=== PATIENT | male | born 1950 | race Caucasian/White ===

== ENCOUNTER 2024-10-14 13:14 | Outpatient (AMB) | payer MEDICARE, MEDICAID, SELFPAY ==
[2024-10-14 13:33] VITALS: BP 142/72; PULSE 70; RESP 18; TEMP 36.3; O2SAT 90; BMI 34.7
--- NOTE | 2024-10-14 13:33 | ORTHONT_ITS ---
Vital signs 10/14/24 13:33 Height 1.63 m Height Method Stated Weight 92.278 kg Weight Measurement Method Standing Scale BMI 34.7 BP 142/72 H Blood Pressure Source Automatic Cuff Blood Pressure Location Left Upper Arm Position Sitting Respiration 18 Pulse 70 Pulse Source Monitor Temp 97.4 F Temp Source Temporal Artery Scan Pulse Oximetry (%) 90 L Oxygen Delivery Method Room Air Med/Allergies Allergies & Medications Allergies No Known Allergies Allergy (Verified 10/14/24 13:34) Medication Reconciliation benzonatate 100 mg capsule (Tessalon Perles) 200 mg (2 x 100 mg) PO TID PRN coug h #30 caps 08/22/18 [Rx Confirmed 10/14/24] insulin human U-100 NPH-regulr 70-30 mix 100 unit/mL subcutaneous susp (Novolin 70/30 U-100 Insulin) 25 unit subcut ACHS Diabetes 08/22/18 [History Confirmed 10/14/24] levetiracetam 500 mg tablet (Keppra) 1,000 mg PO BID 08/22/18 [History Confirmed 10/14/24] losartan 50 mg tablet (Cozaar) 1 tab PO QDAY 08/22/18 [History Confirmed 10/14/24] vcdzceteiern-oohzkumavefqe-dlhekfg 6.25 mg-5 mg-10 mg/5 mL oral syrup (Promethazine VC-Codeine) 5 ml PO Q6H PRN cough #118 mL 08/22/18 [Rx Confirmed 10/14/24] ramipril 5 mg capsule 5 mg PO QDAY 08/22/18 [History Confirmed 10/14/24] albuterol sulfate 90 mcg/actuation aerosol inhaler 1 puff inhalation QID PRN shortness of breath or wheezing #8.5 grams 09/04/22 [Rx Confirmed 10/14/24] nirmatrelvir 300 mg (150 mg x2)-ritonavir 100 mg tablet,dose pack (Paxlovid) See Rx Instructions PO .COMPLEX #30 tabs 09/04/22 [Rx Confirmed 10/14/24] acetaminophen 500 mg capsule 1,000 mg (2 x 500 mg) PO TID #30 caps 09/11/22 [Rx Confirmed 10/14/24] dextromethorphan-guaifenesin 10 mg-100 mg/5 mL oral liquid 10 ml PO Q8H PRN cough #500 mL 09/11/22 [Rx Confirmed 10/14/24] hydrocodone 5 mg-acetaminophen 325 mg tablet 1 tab PO BID PRN pain #10 tabs 10/01/22 [Rx Confirmed 10/14/24] ibuprofen 600 mg tablet 600 mg PO Q6H #30 tabs 10/01/22 [Rx Confirmed 10/14/24] Exam Exam Breathing is nonlabored. Patient has a normal mood and affect. Bilateral extremities were evaluated and demonstrates sensation intact to light touch. Palpable pedal pulses are present. No significant edema is present. Bilateral hips were examined. The patient has no pain with log roll of the hips. Internal rotation to 30 degrees and external rotation to 30 degrees is painless. Negative FADIR. Left knee was examined today. The left knee is in reasonable alignment. Range of motion from 0-120 degrees. Knee is stable to varus and valgus as well as AP translation with <5mm. Patient has a negative McMurrays. There is no pain with patellofemoral compression and no crepitus noted. The knee is nontender to palpation. The right knee was also examined. The right knee is in varus alignment. Range of motion from 0-115 degrees. Knee is stable to varus and valgus as well as AP translation with <5mm. Patient has a negative McMurrays. There is no pain with patellofemoral compression and no crepitus noted. The knee is tender to palpation medially. Right knee MRI demonstrates medial cartilage loss as well as lateral medial meniscus tears Assessment and Plan Problem List (1) Arthritis of right knee: Status: Acute Plan: Patient is a pleasant 74-year-old male with right knee pain and right knee arthritis. We discussed nonoperative and operative options. He would like a cortisone injection today which is reasonable. Recommend knee cortisone injection as patient would like to proceed with conservative treatment at this time. The risks and benefits of the procedure were reviewed with the patient and patient gave verbal consent to continue with the procedure. Procedure: performed by Dr. Canas Using sterile technique the Right knee was thoroughly prepped with alcohol, and approximately 1 cc of Kenalog 40 mg/mL and 4 cc of 1% lidocaine was injected without resistance into the medial tibial femoral joint space. The patient tolerated the procedure. 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 3 (2106-6174) Surgical Proc/IM SQ injection Major Surgical Procedure: Yes (RIGHT KNEE INJECTION) Medication Given Medication Given Medication Given: Yes Documented Dose Given: 4 Route: Infiitration Medication Given Medication Given Medication Given: Yes Documented Dose Given: 1 Route: Infiitration Office Meds Xylocaine 10 mg/mL (1 %) injection solution Performing Provider: Tavares Canas MD Performing Location: [facility] Administered by: Tavares Canas MD on 10/14/24 14:15 Dose Route Admin Location Dispensed Lot Number Expiration Date [facility] Accounts Receivable Administrator 20 mL Infiltration 20 mL [id number] 01/19/28 63367-081-[address] [facility] triamcinolone acetonide 40 mg/mL suspension for injection Performing Provider: Tavares Canas MD Performing Location: [facility] Administered by: Jessica Du on 10/14/24 14:15 Dose Route Admin Location Dispensed Lot Number Expiration Date [facility] Accounts Receivable Administrator 40 mg intra-articular KNEE 1 mL [id number] 02/17/26 0800-0763-0 1 TEVA PARENTERAL [place] Intake Visit Data Collection New Patient or Established: New Patient (never been to [facility]) Reason for Visit:: RIGHT KNEE PAIN Seen by Clinical Staff ONLY (RN/MA): No Custom Applicator Required: Yes PCP or OBGYN visit in last 3 months: Yes Hx Now: No Do You Feel Safe at Home: Yes Authorities Contacted: N/A Questionairres Past Medical History Past Medical History Have you ever been diagnosed with any of the following: Neurological Problems Traumatic Brain Injury: Yes Cardiology Problems Hypercholesterolemia: Yes Congestive Heart Failure: No Hypertension: Yes Respiratory Problems Chronic Obstructive Pulmonary Disease (COPD): No Genital/Urinary Problems Renal Disease: No Endocrine Problems Diabetes Mellitus Type 1: No Diabetes Mellitus Type 2: Yes Subjective Visit Visit for: new patient and knee (RIGHT) Immunization / Flu Flu Vaccine in the Last 12 Months: Yes Flu Vaccine Exclusion Criteria: Already Received History of Present Illness Chief complaint: right knee pain Date of injury / onset of symptoms: 05/2024 Yoana is a pleasant 74-year-old male with right knee pain and right knee arthritis. He has an MRI which shows lateral medial meniscus tear as well as arthritis. He reports that he had 1 injection previously and it helped for quite a while. He would like another 1 today. He is unsure of how well his sugars are controlled. We discussed in detail that this could raise his sugars. He would still want one today. Personal History Occupation: UNEMPLOYED Hobbies: NONE Pain Pain level (0-10): 5 Pain duration: COMES AND GOES Pain location: inside (medial) and anterior Pain quality: dull and aching Pain timing: night, increases with activity and stairs Associated signs & symptoms: none Ambulatory data Ambulatory device: none Treatments Number of previous injections: 3 Improvement with previous injections: Yes Improvement with PT: No Improvement with NSAIDS: no Review of Systems Review of Systems: All systems negative unless otherwise noted in HPI.
== END 2024-10-14 14:25 | disposition home or self-care (01) ==
LOC: HODSRG 13:14
PROVIDERS: PCP Internal Medicine; Referring Provider Internal Medicine; Supervising Provider Orthopaedic Surgery Adult Reconstructive Orthopaedic Surgery; Visit Provider Orthopaedic Surgery Adult Reconstructive Orthopaedic Surgery
DX: M17.11 Unilateral primary osteoarthritis, right knee (principal); M25.561 Pain in right knee; I10 Essential (primary) hypertension; E78.00 Pure hypercholesterolemia, unspecified; E11.9 Type 2 diabetes mellitus without complications
CPT/HCPCS: 20610; 99203; J3301; J3490; G0463

== ENCOUNTER → 2024-10-14 | Outpatient (CLI) | payer MEDICARE, MEDICAID, SELFPAY ==
--- NOTE | 2024-10-14 14:59 | XR_ITS ---
Examination: Right knee 4 views TECHNIQUE: AP oblique lateral axial right knee 4 views Exam date and time: October 14, 2024 1531 hours INDICATIONS: Right knee pain beginning 3 months ago. FINDINGS: Significant osteopenia Moderate knee effusion Advanced tricompartment osteoarthritis No fracture No patellar dislocation IMPRESSION: Advanced tricompartment osteoarthritis
== END | disposition home or self-care (01) ==
PROVIDERS: PCP Nurse Practitioner Primary Care; Referring Provider Orthopaedic Surgery Adult Reconstructive Orthopaedic Surgery; Visit Provider Orthopaedic Surgery Adult Reconstructive Orthopaedic Surgery
DX: M17.11 Unilateral primary osteoarthritis, right knee (principal)
CPT/HCPCS: 73564

== ENCOUNTER 2024-11-22 13:02 | Outpatient (AMB) | payer OTHER, SELFPAY ==
--- NOTE | 2024-11-22 13:32 | ORTHONT_ITS ---
Vital signs 11/22/24 13:33 Height 1.63 m Height Method Stated Weight 93.553 kg Weight Measurement Method Standing Scale BMI 35.2 BP 144/70 H Blood Pressure Source Automatic Cuff Blood Pressure Location Left Upper Arm Position Sitting Respiration 18 Pulse 77 Pulse Source Monitor Temp 97.8 F Temp Source Temporal Artery Scan Pulse Oximetry (%) 90 L Oxygen Delivery Method Room Air Med/Allergies Allergies & Medications Allergies No Known Allergies Allergy (Verified 11/22/24 13:34) Medication Reconciliation benzonatate 100 mg capsule (Tessalon Perles) 200 mg (2 x 100 mg) PO TID PRN coug h #30 caps 08/22/18 [Rx Confirmed 11/22/24] insulin human U-100 NPH-regulr 70-30 mix 100 unit/mL subcutaneous susp (Novolin 70/30 U-100 Insulin) 25 unit subcut ACHS Diabetes 08/22/18 [History Confirmed 11/22/24] levetiracetam 500 mg tablet (Keppra) 1,000 mg PO BID 08/22/18 [History Confirmed 11/22/24] losartan 50 mg tablet (Cozaar) 1 tab PO QDAY 08/22/18 [History Confirmed 11/22/24] fpvtpafiisac-jwjkixsswwqtn-brxzsha 6.25 mg-5 mg-10 mg/5 mL oral syrup (Promethazine VC-Codeine) 5 ml PO Q6H PRN cough #118 mL 08/22/18 [Rx Confirmed 11/22/24] ramipril 5 mg capsule 5 mg PO QDAY 08/22/18 [History Confirmed 11/22/24] albuterol sulfate 90 mcg/actuation aerosol inhaler 1 puff inhalation QID PRN shortness of breath or wheezing #8.5 grams 09/04/22 [Rx Confirmed 11/22/24] nirmatrelvir 300 mg (150 mg x2)-ritonavir 100 mg tablet,dose pack (Paxlovid) See Rx Instructions PO .COMPLEX #30 tabs 09/04/22 [Rx Confirmed 11/22/24] acetaminophen 500 mg capsule 1,000 mg (2 x 500 mg) PO TID #30 caps 09/11/22 [Rx Confirmed 11/22/24] dextromethorphan-guaifenesin 10 mg-100 mg/5 mL oral liquid 10 ml PO Q8H PRN cough #500 mL 09/11/22 [Rx Confirmed 11/22/24] hydrocodone 5 mg-acetaminophen 325 mg tablet 1 tab PO BID PRN pain #10 tabs 10/01/22 [Rx Confirmed 11/22/24] ibuprofen 600 mg tablet 600 mg PO Q6H #30 tabs 10/01/22 [Rx Confirmed 11/22/24] Exam Exam Breathing is nonlabored. Patient has a normal mood and affect. Bilateral extremities were evaluated and demonstrates sensation intact to light touch. Palpable pedal pulses are present. No significant edema is present. Bilateral hips were examined. The patient has no pain with log roll of the hips. Internal rotation to 30 degrees and external rotation to 30 degrees is painless. Negative FADIR. Left knee was examined today. The left knee is in reasonable alignment. Range of motion from 0-120 degrees. Knee is stable to varus and valgus as well as AP translation with <5mm. Patient has a negative McMurrays. There is no pain with patellofemoral compression and no crepitus noted. The knee is nontender to palpation. The right knee was also examined. The right knee is in varus alignment. Range of motion from 0-115 degrees. Knee is stable to varus and valgus as well as AP translation with <5mm. Patient has a negative McMurrays. There is no pain with patellofemoral compression and no crepitus noted. The knee is tender to palpation medially. Right knee MRI demonstrates medial cartilage loss as well as lateral medial meniscus tears X-rays demonstrate significant arthritis of the medial compartment with complete joint space narrowing. Assessment and Plan Problem List (1) Arthritis of right knee: Status: Acute Plan: Patient is a pleasant 74-year-old male with right knee pain and right knee arthritis. We discussed nonoperative and operative options. He is doing well with the last cortisone injection. Will continue with nonoperative treatment. We will see him in approximately 3 months for repeat injections versus operative.treatment. Advanced Care Planning Discussion Advance care planning discussed with:: patient Office Procedures GNS Level of Care Nursing/Assessment Patient Status: Established Patient Nursing Assessment/Reassesment: Medication Reconciliation, Update PMH in EMR and Vital Signs Coordination of Care: Complex Care and Chronic Disease 1-5, Education Complex Pt/Fam, Consent,records obtained, informed consent, Results/Orders obtained and Staff clarify orders Special Needs: Language special needs Established Patient Charge Established Patient Point Assignment: 95 Established Patient Point Charge: EP Level 3 (80-115) MA Intake Visit Data Collection New Patient or Established: Established Patient (seen at [facility] within 3 years) Reason for Visit:: XRAY F/U Seen by Clinical Staff ONLY (RN/MA): No Automotive Parts Coordinator Required: Yes PCP or OBGYN visit in last 3 months: Yes Hx Now: No Do You Feel Safe at Home: Yes Authorities Contacted: N/A Questionairres Past Medical History Past Medical History Have you ever been diagnosed with any of the following: Neurological Problems Traumatic Brain Injury: Yes Cardiology Problems Hypercholesterolemia: Yes Congestive Heart Failure: No Hypertension: Yes Respiratory Problems Chronic Obstructive Pulmonary Disease (COPD): No Smoking: No Smoking Cessation Counseling: No Smoking Exposure: No Genital/Urinary Problems Renal Disease: No Endocrine Problems Diabetes Mellitus Type 1: No Diabetes Mellitus Type 2: Yes Subjective Visit Visit for: follow up visit and x-rays Immunization / Flu Flu Vaccine in the Last 12 Months: No Flu Vaccine Exclusion Criteria: No Exclusion Criteria History of Present Illness Chief complaint: right knee pain Date of injury / onset of symptoms: 05/2024 Yoana is a pleasant 74-year-old male with right knee pain and right knee arthritis. He has an MRI which shows lateral medial meniscus tear as well as arthritis. He reports that he had 1 injection previously and it helped for quite a while. His last injections have worked tremendously and he is here for his xray results. Personal History Occupation: UNEMPLOYED Hobbies: NONE Pain Pain level (0-10): 0 Pain duration: COMES AND GOES Pain location: inside (medial) and anterior Pain quality: dull and aching Pain timing: night, increases with activity and stairs Associated signs & symptoms: none Ambulatory data Ambulatory device: walker Treatments Number of previous injections: 3 Improvement with previous injections: No Improvement with PT: No Improvement with NSAIDS: no Review of Systems Review of Systems: All systems negative unless otherwise noted in HPI.
[2024-11-22 13:33] VITALS: BP 144/70; PULSE 77; RESP 18; TEMP 36.6; O2SAT 90; BMI 35.2
== END 2024-11-22 13:55 | disposition home or self-care (01) ==
PROVIDERS: PCP Internal Medicine; Referring Provider Internal Medicine; Supervising Provider Orthopaedic Surgery Adult Reconstructive Orthopaedic Surgery; Visit Provider Orthopaedic Surgery Adult Reconstructive Orthopaedic Surgery
DX: M17.11 Unilateral primary osteoarthritis, right knee (principal)
CPT/HCPCS: 99213; G0463

== ENCOUNTER 2025-03-01 07:19 | Emergency (ER) | payer OTHER, SELFPAY ==
[2025-03-01 07:32] VITALS: BP 140/68; PULSE 72; RESP 18; TEMP 37.4; O2SAT 95; BMI 32.3
--- NOTE | 2025-03-01 07:39 | XR_ITS ---
Examination: PA lateral chest 2 views Technique PA lateral chest 2 views Indications: Coughing beginning 3 days ago. Findings: Heart size normal No lobar pneumonia. The osseous structures are intact Impression: No pneumonia or pulmonary edema
--- NOTE | 2025-03-01 07:40 | EDNOTE_ITS ---
Upper Respiratory Inf. RME/HPI General Chief Complaint: Headache Stated Complaint: SEVERE HEADACHE THIS AM, COUGH X 3 DAYS Time Seen by Provider: 03/01/25 07:32 Source: patient Arrival date/time: 03/01/25 07:19 75-year-old male with a history of type 2 diabetes, hypertension, hyperlipidemia presents to the emergency room with a chief complaint of a 10 out of 10 headache and cough x 3 days Mode of arrival: ambulatory Limitations: no limitations Related Data Home Medications ?Medication ?Instructions ?Recorded ?Confirmed insulin human U-100 NPH-regulr 25 unit subcut ACHS Haley betes 08/22/18 11/22/24 70-30 mix 100 unit/mL subcutaneous susp (Novolin 70/30 U-100 Insulin) levetiracetam 500 mg tablet 1,000 mg PO BID 08/22/18 0 11/22/24 (Keppra) losartan 50 mg tablet (Cozaar) 1 tab PO QDAY 08/22/18 11/22/24 ramipril 5 mg capsule 5 mg PO QDAY 08/22/18 Previous Rx's ?Medication ?Instructions ?Recorded benzonatate 100 mg capsule 200 mg (2 x 100 mg) PO TID PRN 08/22/18 (Hansa Allen) cough #30 caps rxjzkkjbeest-jjotytcmiqpgi-fzjqgch 5 ml PO Q6H PRN cou gh #118 mL 08/22/18 6.25 mg-5 mg-10 mg/5 mL oral syrup (Promethazine VC-Codeine) albuterol sulfate 90 mcg/actuation 1 puff inhalation Q ID PRN 09/04/22 aerosol inhaler shortness of breath or wheez ing #8.5 grams nirmatrelvir 300 mg (150 mg See Rx Instructions PO .CO MPLEX 09/04/22 x2)-ritonavir 100 mg tablet,dose #30 tabs pack (Paxlovid) acetaminophen 500 mg capsule 1,000 mg (2 x 500 mg) PO TID #30 09/11/22 caps dextromethorphan-guaifenesin 10 10 ml PO Q8H PRN cough #500 mL 09/11/22 mg-100 mg/5 mL oral liquid hydrocodone 5 mg-acetaminophen 325 1 tab PO BID PRN pa in #10 tabs 10/01/22 mg tablet ibuprofen 600 mg tablet 600 mg PO Q6H #30 tabs 10/01 acetaminophen-caffeine 500 mg-65 1 tab PO Q8H PRN pain #30 tabs 03/01/25 mg tablet (Excedrin Tension Headache) Allergies Allergy/AdvReac Type Severity Reaction Status Date / Time No Known Allergies Allergy Verified 03/01/25 07:26 Review of Systems Review of Systems Systems Reviewed: All systems reviewed, normal except as documented Constitutional Constitutional: Reports system reviewed and no additional complaints, except as documented, Denies fatigue, Denies fever(s), Reports headache(s) and Reports weakness Eyes Eyes: Reports system reviewed and no additional complaints, except as documented, Denies blurry vision and Denies change in vision ENT Ears, Nose, Mouth, and Throat: Reports system reviewed and no additional complaints, except as documented, Denies otalgia, Reports headache(s), Denies nasal congestion, Denies throat swelling and Denies vertigo Cardiovascular Cardiovascular: Reports system reviewed and no additional complaints, except as documented, Denies chest pain, Denies dyspnea and Denies dyspnea on exertion Respiratory Respiratory: Reports system reviewed and no additional complaints, except as documented, Denies chest congestion, Reports cough, Denies dyspnea, Denies dyspnea on exertion and Denies wheezing Gastrointestinal Gastrointestinal: Reports system reviewed and no additional complaints, except as documented, Denies abdominal pain, Denies cramping, Denies nausea and Denies vomiting Genitourinary Genitourinary: Reports system reviewed and no additional complaints, except as documented, Denies dysuria and Denies hematuria Musculoskeletal Musculoskeletal: Reports system reviewed and no additional complaints, except as documented and Denies back pain Integumentary/Breasts Skin/Breast: Reports system reviewed and no additional complaints, except as documented and Denies wounds Neurologic Neurologic: Reports system reviewed and no additional complaints, except as documented, Denies confusion, Reports headache(s), Denies lack of coordination, Denies vertigo and Reports weakness Psychiatric Psychiatric: Reports system reviewed and no additional complaints, except as documented, Denies anxiety, Denies confusion, Denies depression, Denies paranoia, Denies suicidal ideation and Denies tactile hallucinations Endocrine Endocrine: Reports system reviewed and no additional complaints, except as documented and Denies fatigue Hematologic/Lymphatic Hematologic/Lymphatic: Reports system reviewed and no additional complaints, except as documented and Denies lymphadenopathy Allergic/Immunologic Allergic/Immunologic: Reports system reviewed and no additional complaints, except as documented, Denies throat swelling, Denies urticaria and Denies wheezing Past Medical History Past Medical History NEUROLOGIC: Positive Traumatic Brain Injury CARDIAC: Positive Cardiac Disorders, Hypercholesterolemia and Hypertension; Negative Congestive Heart Failure RESPIRATORY: Negative Chronic Obstructive Pulmonary Disease (COPD), Smoking, Smoking Cessation Counseling or Smoking Exposure GENITOURINARY: Negative Renal Disease ENDOCRINE: Positive Endocrine Disorders and Diabetes Mellitus Type 2; Negative Diabetes Mellitus Type 1 Social History SMOKING STATUS: Never smoker ED Exam General Limitations: Present no limitations General appearance: Present alert and in no apparent distress Head Head exam: Present atraumatic, normocephalic and normal inspection Eye Eye exam: Present normal appearance, PERRL and EOMI ENT ENT exam: Present normal exam, normal oropharynx and mucous membranes moist Neck Neck exam: Present normal inspection, full ROM and trachea midline Chest Chest inspection: Present normal inspection and symmetric chest wall rise Respiratory Respiratory exam: Present normal lung sounds bilaterally; Absent respiratory distress, wheezes, stridor, accessory muscle use or prolonged expiratory phase Cardiovascular Cardiovascular exam: Present regular rate, normal rhythm and normal heart sounds Abdominal Exam Abdominal exam: Present soft and normal bowel sounds Extremities Exam Extremities exam: Present normal inspection and full ROM Back Exam Back exam: Present normal inspection and full ROM Neurological Exam Neurological exam: Present alert, oriented X3 and CN II-XII intact Expanded Neurological Exam Patient oriented to: Present person, place and time Speech: Present fluid speech Cranial nerves: Normal: EOM function (II, III, IV, ) Motor strength - LUE: 5/5 Motor strength - RUE: 5/5 Motor strength - LLE: 5/5 Motor strength - RLE: 5/5 Coma scale eye opening: spontaneous Coma scale motor response: obeys commands Coma scale verbal response: oriented Coma scale total: 15 Psychiatric Psychiatric exam: Present normal affect and normal mood Skin Skin exam: Present warm, dry, intact and normal color Course Quality Measures none Orders Category Date Time Status Bedside Influenza A&B Antigen Test NOW Care 03/01/25 07:[address] head/brain wo con Stat Exams 03/01/25 07:40 Completed XR chest 2V Stat Exams 03/01/25 07:39 Completed COVID-19 Antigen (In-House) Stat Lab 03/01/25 08:10 Ordered Acetaminophen Tab [Tylenol ES Tab] Med 03/01/25 07:40 Discontinued 1,000 mg PO X1 ONE Vital Signs Vital signs: Vital Signs Temperature 99.4 F 03/01/25 07:32 Pulse Rate 72 03/01/25 07:32 Respiratory Rate 18 03/01/25 07:32 Blood Pressure 140/68 H 03/01/25 07:32 Pulse Oximetry (%) 95 03/01/25 07:32 Oxygen Delivery Method Room Air 03/01/25 07:32 Upper Respiratory Infection MDM Narrative MDM Narrative:: 75-year-old male with a history of type 2 diabetes, hypertension, hyperlipidemia presents to the emergency room with a chief complaint of a 10 out of 10 headache and cough x 3 days Patient is hemodynamically stable and in no apparent distress Physical examination shows a normal neurological exam. There are no focal deficits. The patient is a GCS of 15 he is alert and oriented x 3 pupils are PERRLA EOMs are intact the patient is able to tell me that this is a really bad headache that began 3 days ago and has progressively gotten worse The patient also has a cough lung sounds are clear bilaterally there is no wheezing stridor or any respiratory distress CT of the head and brain was negative for any acute findings. Chest x-ray was negative for any acute pneumonia Patient was discharged and educated to follow-up with primary care provider in the next 24 to 48 hours and return to the emergency room for any evidence of worsening signs or symptoms Patient data External records reviewed:: [facility] previous records Clinical information provided by:: patient Social determinants that could affect healthcare access:: none Patient has the following chronic illnesses:: Hypertension, hyperlipidemia, type 2 diabetes How is presenting disease/condition affected by chronic disease/condition?: uneffected by Evaluation data The following diagnostics were reviewed and interpreted by me:: lab results and radiology exam(s) Lab and/or radiology exams considered but not ordered:: Labs and radiology exams considered and ordered Interpretation Summary: Chest x-ray-no pneumonia Head CT-Findings: No significant ventricular enlargement. 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 No mass effect or midline shift Basal cisterns are not remarkable. Fourth ventricle is midline. Right craniotomy defect Impression: Negative for acute hemorrhage, mass effect or midline shift Medications / Prescriptions Medications or Prescriptions considered but not ordered:: Medication given Medication administrations:: Medication Administration History Discontinued Medications Acetaminophen (Acetaminophen 500 Mg Tablet) 1,000 mg PO X1 ONE Stop: 03/01/25 07:41 Last Admin: 03/01/25 08:48 Dose: 1,000 mg Documented By: LF Medication given Consultations Consultation(s) initiated? (list below): No Diagnosis Upper Respiratory Differential Diagnosis: upper respiratory infection, sinusitis, viral infection, bronchitis, influenza, pharyngitis and other (Community-acquired pneumonia) Most likely diagnosis given after review of the tests above:: Headache Admission Indicated Admission indicated?: not indicated Admission Request Was there a request for admission?: No Disposition Plan Disposition Plan: Discharge Discharge Attestation Discharge Attestation: The patient and all family members were given an opportunity to ask questions and understood the discharge instructions. Discharge instructions specifically effects, indications for sooner follow up or return to the emergency department, and the expected course of current diagnosis. Patient condition: Stable Discharge Plan Plan Patient Disposition: HOME (Self Care) Discharge Disposition comment: Stable Prescriptions/Referrals Prescriptions/Med Rec: New Excedrin Tension Headache 500-65 mg tablet 1 tab PO Q8H PRN (Reason: pain) Qty: 30 0RF No Action losartan [Cozaar] 50 mg Tablet 1 tab PO QDAY levetiracetam [Keppra] 500 mg Tablet 1,000 mg PO BID ramipril 5 mg Capsule 5 mg PO QDAY insulin NPH and regular human [Novolin 70/30 U-100 Insulin] 100 unit/mL (70- 30) Suspension 25 unit subcut ACHS benzonatate [Tessalon Perles] 100 mg capsule 200 mg PO TID PRN (Reason: cough) Qty: 30 0RF jdyzywtuloxa-tahifbckl-sjokanz [Promethazine VC-Codeine] 6.25-5-10 mg/5 mL syrup 5 ml PO Q6H PRN (Reason: cough) Qty: 118 0RF Paxlovid 300 mg (150 mg x 2)-100 mg tablets,dose pack See Rx Instructions .ROUTE .COMPLEX Qty: 30 0RF Rx Instructions: take TWO 150 mg tablets of nirmatrelvir with ONE 100 mg tablet of ritonavir twice daily for 5 days albuterol sulfate 90 mcg/actuation HFA aerosol inhaler 1 puff inhalation QID PRN (Reason: shortness of breath or wheezing) Qty: 8.5 0RF hydrocodone-acetaminophen 5-325 mg tablet 1 tab PO BID MDD 10 PRN (Reason: pain) Qty: 10 0RF ibuprofen 600 mg tablet 600 mg PO Q6H Qty: 30 0RF dextromethorphan-guaifenesin 10-100 mg/5 mL liquid 10 ml PO Q8H PRN (Reason: cough) Qty: 500 0RF acetaminophen 500 mg capsule 1,000 mg PO TID Qty: 30 0RF Referrals: Liu Dorsey [Primary Care Provider] - In 1 week Problem List Clinical Impression: Tension headache Patient/Caregiver Discharge Instructions Education Materials: ED Headache, Tension Additional Instructions: Please follow-up with your primary care provider in the next [address] of your head and brain was negative for any acute findings. Your x-ray was negative for any acute pneumonia For any evidence of worsening signs or symptoms return to the emergency room immediately Print Language: Citizen Of [place] Stand Alone Forms: Cathi Award Info., Patient Portal Info Letter PA/[employer] Supervising Physician PA/[employer] Supervising Physician: Dr. Rivera
--- NOTE | 2025-03-01 07:40 | XR_ITS ---
Examination: CT brain head without contrast. 2-D sagittal coronal reconstructions Date and time of exam:March 01 2025 at 0814 hrs. CTDI: vol (mGy):48 DLP: (mGycm):900 Indications: Generalized head pain today Technique: Multiple CT axial sections of the brain have been obtained, 5 mm slice thickness. Contrast has not been administered. 2-D sagittal, coronal reconstructions have been obtained Low dose protocols were performed. One or more of the following dose reduction techniques were used; automated exposure control, adjustment of the mA and/or KV according to patient size, use of iterative reconstruction technique. Findings: No significant ventricular enlargement. 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 No mass effect or midline shift Basal cisterns are not remarkable. Fourth ventricle is midline. Right craniotomy defect Impression: Negative for acute hemorrhage, mass effect or midline shift
[2025-03-01] MEDS: ACETAMINOPHEN 500 MG TABLET 1000 MG PO (08:48)
[2025-03-01 09:26] VITALS: BP 132/77; PULSE 78; RESP 18; TEMP 36.8; O2SAT 98
== END 2025-03-01 09:27 | disposition home or self-care (01) ==
PROVIDERS: Emergency Provider Emergency Medicine; PCP Physician Assistant
DX: G44.209 Tension-type headache, unspecified, not intractable (principal); R05.9 Cough, unspecified
CPT/HCPCS: 70450; 71046; 87400; 87811; 99284; A9270